=== PATIENT | female | born 1950 | race Caucasian/White ===

== ENCOUNTER → 2020-05-19 | Outpatient (CLI) | payer MEDICARE, OTHER ==
[2020-05-19 16:25] LABS: HGB 10.5 gm/dL (11.4-16.0); MCH 26.8 pg (25.0-35.0); MCHC 31.8 g/dL (31.0-37.0); MCV 84.4 fL (80.0-100.0); Mean Platelet Volume 7.1; Platelet Count 440 k/uL (150-450); RBC 3.91 m/uL (3.80-5.40); WBC 13.2 k/uL (3.8-10.6)
[2020-05-19 17:21] LABS: Appearance,Urine Clear (Clear); Bacteria,Urine Rare /hpf; Bilirubin,Urine Negative (Negative); Blood,Urine Moderate (Negative); Color,Urine Light Yellow; Glucose,Urine (UA) 4+ (Negative); Hyaline Casts,Urine 3 /lpf (0-2); Ketones,Urine Negative (Negative); Leukocyte Esterase,Urine Large (Negative); Mucus,Urine Rare /hpf; Nitrite,Urine Negative (Negative); PH, Urine 6.5 (5.0-8.0); Protein,Urine Trace (Negative); RBC,Urine >182 /hpf (0-5); Specific Gravity,Urine 1.008 (1.001-1.035); Squamous Epithelial Cell,Urine 4 /hpf (0-4); Urobilinogen,Urine <2.0 mg/dL (<2.0); WBC,Urine 84 /hpf (0-5)
[2020-05-20 00:39] LABS: % Iron Saturation 12.66 (12.00-45.00); African American GFR (CKD) 35.5 (60.0-200.0); Albumin 4.5 g/dL (3.80-4.90); Albumin/Globulin Ratio 1.96 (1.60-3.17); Anion Gap 15.5 mmol/L (4.00-12.00); BUN/Creat Ratio 12.94 Ratio (12.00-20.00); Calcium 9.6 mg/dL (8.7-10.3); Carbon Dioxide 25.5 mmol/L (21.6-31.8); Globulin 2.3 g/dL (1.6-3.3); Magnesium 1.9 mg/dL (1.5-2.4); Non-African American GFR(CKD) 30.7 (60.0-200.0); Phosphorus 3.7 mg/dL (2.4-5.1); Potassium 4.3 mmol/L (3.5-5.5); Total Bilirubin 0.3 mg/dL (0.2-1.2); Total Protein 6.8 g/dL (6.2-8.2); Uric Acid 5.7 mg/dL (2.9-7.7)
[2020-05-20 03:25] LABS: Hepatitis A Antibody IgM Non-Reactive (Non-Reactive); Hepatitis B Core IgM Non-Reactive (Non-Reactive); Hepatitis B Surface Antigen Non-Reactive (Non-Reactive); Hepatitis C IgG Antibody Non-Reactive (Non-Reactive)
[2020-05-20 06:55] LABS: Anti-DNA, DS unit <1.0 IU/mL; DNA Double-Stranded NEGATIVE (NEGATIVE)
[2020-05-20 12:04] LABS: ANA Pattern Nucleolar; ANA Pattern 2 See Footnote
[2020-05-21 07:25] LABS: C-ANCA <1:20 Titer (<1:20)
== END | disposition home or self-care (01) ==
LOC: LABWHC1 15:51
PROVIDERS: ATTEND Internal Medicine
DX: N17.9 Acute kidney failure, unspecified (principal); D64.9 Anemia, unspecified; N39.0 Urinary tract infection, site not specified; R80.9 Proteinuria, unspecified; N25.81 Secondary hyperparathyroidism of renal origin; M10.9 Gout, unspecified; R53.83 Other fatigue
CPT/HCPCS: 36415; 80053; 80074; 81001; 82043; 82306; 82570; 82728; 83516; 83540; 83550; 83735; 83970; 84100; 84550; 85027; 86038; 86039; 86160; 86162; 86225; 86255; 86334

== ENCOUNTER → 2020-05-19 | Outpatient (CLI) | payer MEDICARE, OTHER ==
--- NOTE | 2020-05-19 17:01 | CT ---
EXAMINATION TYPE: CT abdomen pelvis wo con DATE OF EXAM: 05/19/2020 COMPARISON: None HISTORY: hematuria CT DLP: 680 mGycm Examination of the solid and hollow viscera is limited given the lack of contrast. FINDINGS: LUNG BASES: No evidence for nodule. No evidence for infiltrate. LIVER/GB: The gallbladder is unremarkable. No space-occupying hepatic lesion. PANCREAS: No pancreatic mass identified. No inflammatory process seen. SPLEEN: No evidence for splenomegaly. No intrasplenic lesions seen. ADRENALS: No adrenal nodules identified. No evidence for thickening. KIDNEYS: There is edema of the right kidney with hydronephrosis noted extending to the level of the p elvic inlet where the right ureter appears to normalize. No obstructing radiopaque calculus identifie d. Nonobstructing 3 mm calculus mid pole left kidney. No left renal mass identified. Urinary bladder is unremarkable. BOWEL: Appendix has a normal appearance. No evidence of bowel obstruction. No inflammatory process. Lymph nodes: No evidence for adenopathy greater than 1 cm. Abdominal aorta: Atheromatous changes seen. No evidence for aneurysm. Genital organs: No significant abnormality. Other: No significant abnormality. IMPRESSION: 1. There is edema of the right kidney with hydronephrosis noted extending to the level of the pelvic inlet where the right ureter appears to normalize. No obstructing radiopaque calculus identified. Po ssibilities include obstructing nonradiopaque calculus, recently passed calculus as well as ureteral lesion. Underlying infection is not excluded.
== END | disposition home or self-care (01) ==
LOC: RADCTMAIN 15:19
PROVIDERS: ATTEND Urology
DX: N13.30 Unspecified hydronephrosis (principal); Z88.6 Allergy status to analgesic agent; Z88.8 Allergy status to other drugs, medicaments and biological substances
CPT/HCPCS: 36415; 74176; 80053; 80074; 81001; 82043; 82306; 82565; 82570; 82728; 83516; 83540; 83550; 83735; 83970; 84100; 84520; 84550; 85027; 86038; 86039; 86160; 86162; 86225; 86255; 86334

== ENCOUNTER → 2020-06-02 | Outpatient (CLI) | payer MEDICARE, OTHER ==
--- NOTE | 2020-06-02 22:22 | CT ---
EXAMINATION TYPE: CT abdomen pelvis wo con DATE OF EXAM: 06/02/2020 HISTORY: Hematuria, pain CT DLP: 310.10 mGycm. Automated Exposure Control for Dose Reduction was Utilized. TECHNIQUE: CT scan of the abdomen and pelvis is performed without oral or IV contrast. COMPARISON: CT abdomen and pelvis May 19, 2020. FINDINGS: Within the limitations of a non-contrast study, the following observations are made. LUNG BASES: Mild emphysematous changes visualized lung bases. LIVER/GB: No significant abnormality is appreciated. PANCREAS: No significant abnormality is seen. SPLEEN: No significant abnormality is seen. ADRENALS: No significant abnormality is seen. KIDNEYS: Central 3 mm calcification left kidney favored vascular in etiology coronal image 53 stable from prior. Persistent asymmetric slight right renal enlargement with moderate to severe hydronephros is and moderate proximal to mid hydroureter. There is transition to nondilated distal ureter in the u pper to mid pelvis near axial image 54 without obstructing calculus clearly seen. Some adjacent iliac artery calcification is redemonstrated. No intraluminal calculus in bladder. BOWEL: Slightly suboptimal evaluation of bowel without enteric contrast. No suspicious small or large bowel dilatation. GENITAL ORGANS: Anteverted uterus. LYMPH NODES: No new greater than 1cm abdominal or pelvic lymph nodes are appreciated. Right retroperi toneal subcentimeter nodule or lymph node next image 40 redemonstrated perhaps slightly more prominen t from prior. Scattered prominent but subcentimeter retroperitoneal and mesenteric lymph nodes are se en. OSSEOUS STRUCTURES: Moderate to severe disc space narrowing lumbosacral junction with vacuum disc phe nomena. Some facet arthropathy in the lower lumbar spine. OTHER: Fairly severe atherosclerotic change of aorta extends into branch vessels. IMPRESSION: No significant change from prior study. Persistent moderate to severe asymmetric right-si ded hydronephrosis with some central periureteral edema and mild enlargement right kidney. No obstruc ting calculus clearly seen. Consider further investigation with catheter urogram to exclude obstructi ng uroepithelial lesion or neoplasm.
== END | disposition home or self-care (01) ==
LOC: RADCTMAIN 17:03
PROVIDERS: ATTEND Urology
DX: N13.30 Unspecified hydronephrosis (principal); N28.81 Hypertrophy of kidney; Z88.6 Allergy status to analgesic agent; Z88.8 Allergy status to other drugs, medicaments and biological substances
CPT/HCPCS: 74176

== ENCOUNTER → 2020-07-02 | Outpatient (CLI) | payer MEDICARE, OTHER ==
--- NOTE | 2020-07-02 15:52 | CT ---
EXAMINATION TYPE: CT chest wo con DATE OF EXAM: 07/02/2020 COMPARISON: NONE HISTORY: Kidney ca. Pt scheduled for sx 07/22. Rule out metastatic disease. CT DLP: 279 mGycm. Automated Exposure Control for Dose Reduction was Utilized. TECHNIQUE: CT scan of the thorax is performed without IV contrast. FINDINGS: LUNGS: Moderate to advanced underlying emphysematous change. Nonspecific 5.5 x 5.0 right lower lobe n odule axial image 33 corresponding to sagittal image 21. Focal moderate right apical scarring there a re axial image 9. Focal right upper lung scarring coronal image 37 with 6 mm nodule or nodular compon ent axial image 18. No left-sided nodules. No pleural effusion or pneumothorax. MEDIASTINUM: Lack of IV contrast is noted to limit evaluation for mediastinal and especially hilar ad enopathy. There are no definitive greater than 1 cm hilar or mediastinal lymph nodes. Prominent but subcentimeter AP window lymph nodes are noted. No cardiomegaly or significant pericardial effusion is seen. Moderate to severe three-vessel coronary artery calcification OTHER: Partial visualization of right double-J ureter stent. Suspect abnormal right renal adenopathy image 57, in retrospect it was likely present on recent CT. It measures 1.7 x 1.6 cm currently. IMPRESSION: Moderate to advanced emphysematous change. 2 nonspecific right-sided nodules up to 6 mm i n size. Note is made of suspected right retroperitoneal adenopathy.
== END | disposition home or self-care (01) ==
LOC: RADCTMAIN 15:04
PROVIDERS: ATTEND Urology
DX: J43.9 Emphysema, unspecified (principal); R91.8 Other nonspecific abnormal finding of lung field; Z88.6 Allergy status to analgesic agent; Z88.0 Allergy status to penicillin; Z88.8 Allergy status to other drugs, medicaments and biological substances; C64.1 Malignant neoplasm of right kidney, except renal pelvis
CPT/HCPCS: 71250

== ENCOUNTER → 2020-08-20 | Outpatient (CLI) | payer MEDICARE, OTHER | END | disposition home or self-care (01) | LOC: RADPETMAIN 11:59 | PROVIDERS: ATTEND Internal Medicine Hematology & Oncology | DX: Z53.9 Procedure and treatment not carried out, unspecified reason (principal) ==

== ENCOUNTER → 2020-08-27 | Outpatient (CLI) | payer MEDICARE, OTHER ==
--- NOTE | 2020-08-30 06:32 | PE ---
EXAMINATION TYPE: PET CT fusion skull to thigh DATE OF EXAM: 08/27/2020 COMPARISON: CT chest July 02, 2020. 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 History of unresolving bladder infections. TECHNIQUE: Following the intravenous administration of 11.42 mCi of F-18 FDG, whole body images are performed from the skull base to the midthigh. Images are reviewed on the computer in the coronal, a xial, and sagittal planes. Reconstructed rotating images are created on independent workstation and reviewed on the computer. A localization and attenuation correction CT is performed in conjunction with the PET scan. SCAN: Initial Scan FINDINGS: SKULL BASE AND NECK: No suspicious hypermetabolic uptake. CHEST, MEDIASTINUM, AND HILAR REGION: No suspicious hypermetabolic uptake. ABDOMEN AND PELVIS: Normal excretion is present. There is new double-J right ureter stent. There are abnormal retroperitoneal lymph nodes with hypermetabolic aortocaval lymph nodes along the d istal aorta, for reference axial image 165 fused PET shows 8 x 8 mm hypermetabolic lymph node, max MATIAS V is 5.92. Additional hypermetabolic subcentimeter lymph nodes are present. There is a hypermetabolic subcentimeter posterior right retroperitoneal soft tissue 7 mm nodule image 176, max SUV is 2.89. Th ere is abnormal hypermetabolic uptake corresponding to abnormal soft tissue likely right common iliac chain vessels prevertebral region on the right axial image 184, max SUV is 9.48. Fairly prominent diffuse bowel uptake is nonspecific. OSSEOUS STRUCTURES: No suspicious hypermetabolic uptake. OTHER CT: Background Advanced underlying emphysematous change with few small scattered right-sided no dules, largest measures 8 x 4 mm axial image 83 right upper to midlung is ametabolic. Mild to moderat e three-vessel coronary artery calcification. Anteverted uterus. 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
== END | disposition home or self-care (01) ==
LOC: RADPETMAIN 11:33
PROVIDERS: ATTEND Internal Medicine Hematology & Oncology
DX: R93.89 Abnormal findings on diagnostic imaging of other specified body structures (principal); C66.1 Malignant neoplasm of right ureter
CPT/HCPCS: 78815; A9552

== ENCOUNTER → 2020-11-19 | Outpatient (CLI) | payer MEDICARE, OTHER ==
--- NOTE | 2020-11-21 10:07 | PE ---
EXAMINATION TYPE: PET CT fusion skull to thigh DATE OF EXAM: 11/19/2020 COMPARISON: Prior PET/CT August 27, 2020 and older studies. HISTORY: Right sided uroepithelial ureter cancer progress study . Completed chemotherapy November 12 . TECHNIQUE: Following the intravenous administration of 13.26 mCi of F-18 FDG, whole body images are performed from the skull base to the midthigh. Images are reviewed on the computer in the coronal, a xial, and sagittal planes. Reconstructed rotating images are created on independent workstation and reviewed on the computer. A localization and attenuation correction CT is performed in conjunction with the PET scan. Blood glucose level equals 116. SCAN: Subsequent Scan FINDINGS: SKULL BASE AND NECK: No suspicious hypermetabolic uptake. CHEST, MEDIASTINUM, AND HILAR REGION: Background moderate to advanced underlying emphysematous change is redemonstrated. Stable 6-7 mm ametabolic right upper lung nodule axial image 76. Stable smaller 4 to 5 mm a metabolic right lower lobe nodule axial image 97. No new areas of suspicious hypermetaboli c uptake. ABDOMEN AND PELVIS: Normal excretion is present. There is persistent double-J right ureter stent. Persistent enlarged posterior caval lymph node at level of the draining renal veins axial image 138 m easures 2.0 x 1.1 cm current study decreased in size from 2.6 x 2.0 cm prior study with interval reso lution of abnormal hypermetabolic uptake. Interval resolution of hypermetabolic subcentimeter distal abdominal aortic retroperitoneal lymph nod es on current study. Interval resolution of abnormal hypermetabolic tissue extending into the right c ommon iliac lymph nodes. Subcentimeter posterior right lower abdominal and pelvic soft tissue nodules show decrease in size an d are ametabolic on current study. Fairly prominent diffuse bowel uptake is less prominent . No new areas of abnormal hypermetabolic upt dawn. OSSEOUS STRUCTURES: No suspicious new hypermetabolic uptake. OTHER CT: Nasal septum deviated to right of midline. Mild to moderate three-vessel coronary artery ca lcification. Anteverted uterus. [id number] calcification of the aorta extends into iliac branch vessels. IMPRESSION: Complete positive treatment response. No residual or new areas of abnormal hypermetabolic uptake. Largest lymph node right retroperitoneum at level of renal veins remains only visualized lym ph node greater than 1.0 cm in size.
== END | disposition home or self-care (01) ==
LOC: RADPETMAIN 10:32
PROVIDERS: ATTEND Internal Medicine Hematology & Oncology
DX: C66.1 Malignant neoplasm of right ureter (principal)
CPT/HCPCS: 78815; A9552

== ENCOUNTER → 2020-12-28 | Outpatient (CLI) | payer MEDICARE, OTHER ==
--- NOTE | 2020-12-28 13:56 | XR ---
EXAMINATION TYPE: XR chest 2V DATE OF EXAM: 12/28/2020 COMPARISON: None INDICATION: Treatment for adrenal and kidney cancer presurgical clearance TECHNIQUE: Frontal and lateral views of the chest are obtained. FINDINGS: The heart size is normal. The pulmonary vasculature is normal. The lungs are clear. There is some hyperinflation present. Consider some emphysematous change. IMPRESSION: 1. No acute pulmonary process. 2. No suspicious changes to suggest metastatic disease by chest x-ray. 3. Consider emphysema
== END | disposition home or self-care (01) ==
LOC: RADXRMAIN 12:54
PROVIDERS: ATTEND Nurse Practitioner Family
DX: Z01.818 Encounter for other preprocedural examination (principal); C64.9 Malignant neoplasm of unspecified kidney, except renal pelvis
CPT/HCPCS: 71046

== ENCOUNTER → 2020-12-28 | Outpatient (CLI) | payer MEDICARE, OTHER ==
[2020-12-28 14:21] LABS: Basophils % (A) 1 %; Eosinophils # (A) 0.1 k/uL (0-0.7); Eosinophils % (A) 2 %; HCT 29.6 % (34.0-46.0); HGB 10.3 gm/dL (11.4-16.0); Lymphocytes # (A) 1.6 k/uL (1.0-4.8); Lymphocytes % (A) 25 %; MCH 32.4 pg (25.0-35.0); MCV 92.7 fL (80.0-100.0); Mean Platelet Volume 6.6; Monocytes # (A) 0.4 k/uL (0-1.0); Monocytes % (A) 7 %; Neutrophils # (A) 4.1 k/uL (1.3-7.7); Neutrophils % (A) 64 %; Platelet Count 247 k/uL (150-450); RBC 3.19 m/uL (3.80-5.40); RDW 15.3 % (11.5-15.5); WBC 6.4 k/uL (3.8-10.6)
[2020-12-28 14:37] LABS: Calcium 8.9 mg/dL (8.4-10.2); Potassium 3.9 mmol/L (3.5-5.1)
[2020-12-28 14:38] LABS: Appearance,Urine Cloudy (Clear); Bilirubin,Urine Negative (Negative); Blood,Urine Large (Negative); Color,Urine Light Yellow; Glucose,Urine (UA) Negative (Negative); Ketones,Urine Negative (Negative); Leukocyte Esterase,Urine Large (Negative); Mucus,Urine Rare /hpf; Nitrite,Urine Negative (Negative); PH, Urine 5.5 (5.0-8.0); Protein,Urine 1+ (Negative); RBC,Urine >182 /hpf (0-5); Specific Gravity,Urine 1.011 (1.001-1.035); Squamous Epithelial Cell,Urine <1 /hpf (0-4); Urobilinogen,Urine <2.0 mg/dL (<2.0); WBC,Urine 86 /hpf (0-5)
== END | disposition home or self-care (01) ==
LOC: LABPAT 13:15
PROVIDERS: ATTEND Urology
DX: Z01.818 Encounter for other preprocedural examination (principal); C64.1 Malignant neoplasm of right kidney, except renal pelvis; E11.9 Type 2 diabetes mellitus without complications; R31.29 Other microscopic hematuria
CPT/HCPCS: 36415; 80048; 81001; 85025; 87086

== ENCOUNTER 2021-01-06 09:00 | Inpatient (IN) | payer MEDICARE, OTHER ==
[2020-12-31 16:14] VITALS: BMI 25.0
--- NOTE | 2021-01-05 21:57 | P.HPIHPCON ---
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 Initial post operative image on showed evidence of lymphadenathy along the reteroperitoneum. She underwent PET scan which showed positive nodes along the reteroperitoneum and right common Iliac nodes. She underwent neoadjuvant chemotherapy and obtained a complete response to her jean disease. I discussed with her the option of doing a robotic nephroureteroctomy. Discussed with her risk of bleeding, infection, injury to nearby organ including but no limited blood vessels, bowel, liver. Discussed given her neoadjuvant chemotherapy her surgery would be more challenging, and is associated with increased risk of complication. Discussed with her risk of hear attacks, blood clots, stroke and even . Discussed with her risk of cancer recurrence even with surgery, Discussed with her potential of CKD and progression to dialysis. She understood all risks and agreed to proceed with robotic assisted nephroureterectomy and possible RPLND. Consent for Procedure: I have explained the operation/procedure to the patient, including the risks, benefits, side effects, alternative therapies (including not receiving the proposed treatment or service), the likelihood of the patient achieving his/her goals, and potential recuperation problems for the procedure/sedation/analgesia, as well as any blood products, if indicated. I also explained to the patient the risks, benefits and side effects of the alternatives, as well as the risks related to not receiving the proposed procedure, care, treatment, or services. 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-finished 1 month ago, had pneumonia 2019 & had heart failure & was in hospital for almost a month, went to rehab History of Any Multi-Drug Resistant Organisms: None Reported Past Surgical History: Section Additional Past Surgical History / Comment(s): insertion stent in right ureter Past Anesthesia/Blood Transfusion Reactions: No Reported Reaction Additional Past Anesthesia/Blood Transfusion Reaction / Comment(s): no problem w/blood transfusion Smoking Status: Former smoker - Past Family History Father Family Medical History: Cancer Medications and Allergies Home Medications Medication Instructions Recorded Confirmed Type Albuterol Nebulized [Ventolin 2.5 mg INHALATION BID 04/09/21 04/09/21 History Nebulized] Budesonide [Pulmicort] 0.5 mg INHALATION BID 12/31/20 12/31/20 History Calcium Carbonate/Vitamin D3 1 each PO DAILY 12/31/20 12/31/20 History [Calcium 600 mg-D3 10 Mcg (400 Iu)] Ergocalciferol [Vitamin D2 (1250 1,250 mcg PO Q14D 12/31/20 12/31/20 History Mcg = 47565 Iu)] Famotidine [Pepcid] 20 mg PO BID 12/31/20 12/31/20 History Furosemide [Lasix] 20 mg PO BID 12/31/20 12/31/20 History Insulin Aspart [NovoLOG Flexpen] See Protocol SQ AC-TID 12/31/20 12/31/20 History Insulin Glargine [Lantus] 20 unit SQ HS 12/31/20 12/31/20 History Magnesium Oxide 400 mg PO DAILY 12/31/20 12/31/20 History Metoprolol Tartrate [Lopressor] 25 mg PO BID 12/31/20 12/31/20 History Montelukast [Singulair] 10 mg PO HS 12/31/20 12/31/20 History Ondansetron [Zofran] 4 mg PO Q8HR PRN 12/31/20 12/31/20 History Pravastatin Sodium [Pravachol] 40 mg PO HS 12/31/20 12/31/20 History metFORMIN HCL [Glucophage] 500 mg PO DAILY 12/31/20 12/31/20 History Allergies Allergy/AdvReac Type Severity Reaction Status Date / Time amoxicillin [From Augmentin] Allergy Abdominal Verified 12/31/20 13:04 Pain clavulanic acid Allergy Abdominal Verified 12/31/20 13:04 [From Augmentin] Pain aspirin AdvReac Unknown Verified 12/31/20 13:04 codeine AdvReac Confusion Verified 12/31/20 13:04 prochlorperazine AdvReac Unknown Verified 12/31/20 13:05 [From Compazine] Surgical - Exam - General well developed, well nourished, no distress, no pain - Eyes PERRL, normal ocular movement - ENT normal nares, normal mucosa - Respiratory normal expansion, normal respiratory effort - Psychiatric oriented to time, oriented to person, oriented to place Assessment and Plan Assessment: 70 yo male with hx of right sided TCC -OR for robotic NephU and possible RPLND
[~2021-01-06 09:00] MED LIST: CLINDAMYCIN 600 MG in DEXTROSE 5% IN WATER 50 ML IVPB PRN; DEXAMETHASONE SOD PHOSPHATE 4 MG/ML 1 ML VIAL IV ONE; GENTAMICIN 80 MG in SODIUM CHLORIDE 0.9% 100 ML IVPB PRN; HEPARIN SODIUM,PORCINE/PF 5,000 UNIT/0.5 ML SYRINGE SQ PRN; HYDROmorphone 0.5 MG/0.5 ML SYRINGE IVP PRN; LIDOCAINE 1% (10MG/ML) FOR IV START INTRADERMA PRN; METOCLOPRAMIDE 5 MG/ML 2 ML VIAL IVP PRN; ONDANSETRON 4 MG/2 ML VIAL IVP ONE; ONDANSETRON 4 MG/2 ML VIAL IVP PRN
[2021-01-06] MEDS: LACTATED RINGERS 1,000 ML IV SCH ×2 (09:57→09:58)
[2021-01-06 10:00] LABS: Glucose,Whole Blood 117 mg/dL (75-99)
[2021-01-06] MEDS ORDERED: fentaNYL (PF) 50 MCG/ML 2 ML AMP IV ONE (10:35)
[2021-01-06] MEDS ORDERED: MIDAZOLAM 2 MG/2 ML VIAL IV ONE (10:35)
[2021-01-06] MEDS ORDERED: ROCURONIUM 10 MG/ML (5 ML VIAL) IV ONE (11:05)
[2021-01-06] MEDS ORDERED: ePHEDrine SULFATE/0.9% NACL/PF 50 MG/5 ML SYRINGE IV ONE ×2 (11:05)
[2021-01-06] MEDS ORDERED: LIDOCAINE 1% INJ 10MG/ML (20 ML MDV) ONE (11:05)
[2021-01-06] MEDS ORDERED: MIDAZOLAM 2 MG/2 ML VIAL ONE (11:05)
[2021-01-06] MEDS ORDERED: ROPIVACAINE 5 MG/ML 30 ML VIAL ONE (11:05)
[2021-01-06] MEDS ORDERED: GLYCOPYRROLATE 0.2 MG/ML 2 ML VIAL ONE (11:05)
[2021-01-06] MEDS ORDERED: HYDROmorphone (PF) 1 MG/ML ONE (11:05)
[2021-01-06] MEDS ORDERED: ALBUTEROL INHALER 60 PUFF/8 GM INHALER (MHU) INHALATION ONE (11:05)
[2021-01-06] MEDS ORDERED: fentaNYL (PF) 50 MCG/ML 2 ML AMP ONE (11:05)
[2021-01-06] MEDS ORDERED: SODIUM CHLORIDE 0.9% (PF) 10 ML VIAL ONE (11:05)
[2021-01-06] MEDS ORDERED: PROPOFOL 10 MG/ML 20 ML VIAL IV ONE (11:05)
[2021-01-06] MEDS ORDERED: NEOSTIGMINE 1 MG/ML 10 ML VIAL ONE (11:05)
--- NOTE | 2021-01-06 11:08 | P.ANPRN ---
Procedure Note - Anesthesia - Nerve Block Performed Bilateral Erector Spinae Single Time Out Performed: Yes (1034) Date of Procedure: 01/06/21 Procedure Start Time: 10:35 Procedure Stop Time: 10:41 Location of Patient: PreOp Indication: Acute Post-Operative Pain, Requested by Surgeon Specifically requested for management of pain by : Pascual Lee Sedation Type: Sedate with meaningful contact maintained Preparation: Sterile Prep Position: Supine Catheter: None Needle Types: Pajunk Needle Gauge: 21 Ultrasound used to visualize needle placement: Yes Ultrasound used to observe medication spread: Yes Injectate: 0.5% Ropivacaine (see comment for volume) ((Ropi 0.5% 15cc NaCl 15cc) each side) Blood Aspirated: No Pain Paresthesia on Injection Noted: No Resistance on Injection: Normal Image Stored and Saved: Yes Events: Uneventful and Well Tolerated
[2021-01-06] MEDS ORDERED: BUPIVACAINE (PF) 0.5% 30 ML VIAL SQ ONE (11:12)
[2021-01-06] MEDS ORDERED: LACTATED RINGERS 1,000 ML IV ONE (13:26)
--- NOTE | 2021-01-06 13:28 | P.OP ---
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 Initial post operative image on showed evidence of lymphadenathy along the reteroperitoneum. She underwent PET scan which showed positive nodes along the reteroperitoneum and right common Iliac nodes. She underwent neoadjuvant chemotherapy and obtained a complete response to her jean disease. I discussed with her the option of doing a robotic nephroureteroctomy. Discussed with her risk of bleeding, infection, injury to nearby organ including but no limited blood vessels, bowel, liver. Discussed given her neoadjuvant chemotherapy her surgery would be more challenging, and is associated with increased risk of complication. Discussed with her risk of hear attacks, blood clots, stroke and even . Discussed with her risk of cancer recurrence even with surgery, Discussed with her potential of CKD and progression to dialysis. She understood all risks and agreed to proceed with robotic assisted nephroureterectomy and possible RPLND. Operative Findings: Significant desmoplastic reaction around the kidney and the ureter Description of Procedure: The patient was taken to the operating room . General anesthesia was induced. She was prepped and draped in sterile fashion, and was placed in modified flank position . All pressure points were padded. The abdominal insufflation was achieved with the Veress needle. A 8 mm camera port was placed. Robotic trocars and dairy and food laboratory assistant ports were placed under direct vision. a 5 mm liver retractor was placed. . The robot was docked into place. The colon was mobilized medially by incising along the white line of Toldt. Next the duodenum was kocherized. Of note there was significant edematous and desmoplastic reaction around the bowel in the kidney. At this time the vena cava was exposed. Next the ureter was retracted anteriorly off the psoas muscle, this was challenging due to the significant desmoplastic reaction around the ureter. Dissection proceeded cranially towards the renal hilum. A The upper pole attachments were dissected. Care was taken to safely mobilize the kidney free of all visceral structures.The renal vessels were dissected. At this point the renal vessels were exposed. Next the renal hilum was ligated using the vascular stapler. at this time it was noticed that ureter has partially tore in the proximal ureter. At this time clip was placed at the proximal ureter edge and the sent was removed. The adrenal gland was mobilized. Lateral and remaining kidney attachments were released. There was significant adhesion along the distal ureter. Thus given this finding and the desmoplastic reaction around the ureter, a bladder cuff could not be obtained. Thus the ureter was clipped right before it enters the bladder and ligated The kidney and ureter was placed in an Endo Catch bag. The robot was then de-docked and the specimen was then removed by extending the dairy and food laboratory assistant port. Fascia was closed with one layer using #1 Stratafix. Skin was closed with subcuticular sutures and dermabond. The patient was awoken from general anesthesia in stable condition. Please refer to the final pathology report for final diagnosis
[2021-01-06] MEDS ORDERED: ONDANSETRON 4 MG TAB PO PRN (13:34)
[2021-01-06] MEDS ORDERED: HYDROmorphone 1 MG/ML 1 ML SYRINGE IVP PRN (13:38)
[2021-01-06] MEDS ORDERED: methocarbamoL 750 MG TAB PO PRN (13:40)
[2021-01-06 15:55] LABS: Glucose,Whole Blood 192 mg/dL (75-99)
[2021-01-06] MEDS: SODIUM CHLORIDE 0.9% 1,000 ML IV SCH (17:43)
[2021-01-06] MEDS: HEPARIN SODIUM,PORCINE/PF 5,000 UNIT/0.5 ML SYRINGE SQ SCH ×2 (17:43→23:27)
[2021-01-06] MEDS: ALBUTEROL NEBULIZED 2.5 MG/3 ML INHALATION SCH (19:29)
[2021-01-06] MEDS: BUDESONIDE 0.5 MG/2 ML NEBU INHALATION SCH (19:29)
[2021-01-06] MEDS: INSULIN DETEMIR (LEVEMIR) 100 UNIT/ML SYR SQ SCH (20:09)
[2021-01-06] MEDS: MONTELUKAST 10 MG TAB PO SCH (20:10)
[2021-01-06] MEDS: METOPROLOL TARTRATE 25 MG TAB PO SCH (20:10)
[2021-01-06] MEDS: PRAVASTATIN SODIUM 40 MG TAB PO SCH (20:10)
[2021-01-06 20:18] LABS: Glucose,Whole Blood 159 mg/dL (75-99)
[2021-01-07] MEDS: ACETAMINOPHEN TAB 325 MG TAB PO PRN ×4 (01:48→20:56)
[2021-01-07] MEDS: SODIUM CHLORIDE 0.9% 1,000 ML IV SCH (05:04)
[2021-01-07 05:56] LABS: Basophils % (A) 0 %; Eosinophils % (A) 0 %; HCT 25.6 % (34.0-46.0); Lymphocytes # (A) 1.1 k/uL (1.0-4.8); Lymphocytes % (A) 12 %; MCH 31.1 pg (25.0-35.0); MCHC 32.7 g/dL (31.0-37.0); Mean Platelet Volume 6.7; Monocytes # (A) 0.6 k/uL (0-1.0); Monocytes % (A) 7 %; Neutrophils % (A) 80 %; Platelet Count 234 k/uL (150-450); RDW 15.3 % (11.5-15.5); WBC 8.8 k/uL (3.8-10.6)
[2021-01-07 06:18] LABS: HGB 8.4 gm/dL (11.4-16.0)
[2021-01-07 07:21] LABS: Glucose,Whole Blood 109 mg/dL (75-99)
[2021-01-07] MEDS: HEPARIN SODIUM,PORCINE/PF 5,000 UNIT/0.5 ML SYRINGE SQ SCH ×2 (07:35→17:36)
[2021-01-07] MEDS: SENNOSIDES 8.6 MG TAB PO SCH (07:36)
[2021-01-07] MEDS: metFORMIN 500 MG TAB PO SCH (07:37)
[2021-01-07] MEDS: METOPROLOL TARTRATE 25 MG TAB PO SCH ×2 (07:37→20:53)
[2021-01-07] MEDS: BUDESONIDE 0.5 MG/2 ML NEBU INHALATION SCH ×2 (08:30→20:12)
[2021-01-07] MEDS: ALBUTEROL NEBULIZED 2.5 MG/3 ML INHALATION SCH ×2 (08:30→20:12)
[2021-01-07] MEDS ORDERED: FAMOTIDINE 20 MG TAB PO SCH (09:00)
[2021-01-07] MEDS: FAMOTIDINE 20 MG TAB PO SCH ×3 (09:02→20:52)
--- NOTE | 2021-01-07 09:12 | P.PN ---
Subjective Progress Note Date: 01/07/21 POD #1 S/P robotic right NephU No acute overnight event, pain is controlled, tolerating a diet, Objective - Vital Signs Vital signs: Vital Signs Temp 97.5 F L 01/07/21 07:41 Pulse 82 01/07/21 08:43 Resp 16 01/07/21 08:43 BP 114/61 01/07/21 07:41 Pulse Ox 100 01/07/21 08:30 Intake & Output 01/06/21 01/07/21 01/07/21 18:59 06:59 18:59 Intake Total 2376 1260 120 Output Total 700 600 Balance 1676 660 120 Weight 58.5 kg Intake: IV 2106 Intake, IV Titration 150 900 Amount Sodium Chloride 0.9% 1, 150 900 000 ml @ 75 mls/hr IV . [id number] [facility] Rx#:[id number] Oral 120 360 120 Output: Urine 650 600 Estimated Blood Loss 50 Other: Voiding Method Indwelling Catheter Indwelling Catheter - Constitutional General appearance: Present: no acute distress - Psychiatric Psychiatric: Present: A&O x's 3 - Labs CBC & Chem 7: 01/07/21 05:00 Labs: Abnormal Lab Results - Last 24 Hours (Table) 01/06/21 01/06/21 01/06/21 Range/Units 09:57 15:53 20:16 RBC (3.80-5.40) m/uL Hgb (11.4-16.0) gm/dL Hct (34.0-46.0) % POC Glucose (mg/dL) 117 H 192 H 159 H (75-99) mg/dL 01/07/21 01/07/21 Range/Units 05:00 07:20 RBC 2.70 L (3.80-5.40) m/uL Hgb 8.4 L D (11.4-16.0) gm/dL Hct 25.6 L (34.0-46.0) % POC Glucose (mg/dL) 109 H (75-99) mg/dL Assessment and Plan Assessment: S/P right robotic NephU, no bladder cuff was obtained due to adhesions -ambulate -Pain control -D/C mcnair -F/U on Nephrology recs -Potential discharge home tomorrow
[2021-01-07 10:00] LABS: African American GFR (CKD) 48.8 (60.0-200.0); Anion Gap 9.8 mmol/L (4.00-12.00); Calcium 8.3 mg/dL (8.7-10.3); Carbon Dioxide 26.2 mmol/L (21.6-31.8); Non-African American GFR(CKD) 42.1 (60.0-200.0); Potassium 4.8 mmol/L (3.5-5.5)
--- NOTE | 2021-01-07 11:36 | P.NPCON ---
History of Present Illness - Reason for Consult chronic renal failure - History of Present Illness Reason for consultation: Chronic kidney disease History of present illness: I sent patient is a 70-year-old female seated in renal consultation for chronic kidney disease. Patient has chronic kidney disease stage III at baseline creatinine in the range of 1.1-1.2. Patient has history of renal cancer and underwent a robotic-assisted laparoscopic nephroureterectomy on January 06. She currently has a Torre catheter. Good urine output. Renal function stable. Creatinine 1.3 today. No chest pain or shor tness of breath. Oral intake is good. IV fluids were stopped this morning. She does have a long-standing history of diabetes mellitus. She was taking diuretics at home which are currently held. No edema. Denies use of nonsteroidals. No family history of renal disease. Last chemotherapy was about a month ago. Vital signs are stable. General: The patient appeared well nourished and normally developed. HEENT: Head exam is unremarkable. LUNGS: Breath sounds decreased. HEART: Rate and Rhythm are regular. ABDOMEN: Soft, mild tenderness at surgical site. EXTREMITITES: No edema. 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-finished 1 month ago, had pneumonia 2018 & had heart failure & was in hospital for almost a month, went to rehab History of Any Multi-Drug Resistant Organisms: None Reported Past Surgical History: Section Additional Past Surgical History / Comment(s): insertion stent in right ureter Past Anesthesia/Blood Transfusion Reactions: No Reported Reaction Additional Past Anesthesia/Blood Transfusion Reaction / Comment(s): no problem w/blood transfusion Smoking Status: Former smoker - Past Family History Father Family Medical History: Cancer Medications and Allergies Home Medications Medication Instructions Recorded Confirmed Type Albuterol Nebulized [Ventolin 2.5 mg INHALATION BID 12/31/20 12/31/20 History Nebulized] Budesonide [Pulmicort] 0.5 mg INHALATION BID 12/31/20 12/31/20 History Calcium Carbonate/Vitamin D3 1 each PO DAILY 12/31/20 12/31/20 History [Calcium 600 mg-D3 10 Mcg (400 Iu)] Ergocalciferol [Vitamin D2 (1250 1,250 mcg PO Q14D 12/31/20 12/31/20 History Mcg = 76102 Iu)] Famotidine [Pepcid] 20 mg PO BID 12/31/20 12/31/20 History Furosemide [Lasix] 20 mg PO BID 12/31/20 12/31/20 History Insulin Aspart [NovoLOG Flexpen] See Protocol SQ AC-TID 12/31/20 12/31/20 History Insulin Glargine [Lantus] 20 unit SQ HS 12/31/20 12/31/20 History Magnesium Oxide 400 mg PO DAILY 12/31/20 12/31/20 History Metoprolol Tartrate [Lopressor] 25 mg PO BID 12/31/20 12/31/20 History Montelukast [Singulair] 10 mg PO HS 12/31/20 12/31/20 History Ondansetron [Zofran] 4 mg PO Q8HR PRN 12/31/20 12/31/20 History Pravastatin Sodium [Pravachol] 40 mg PO HS 12/31/20 12/31/20 History metFORMIN HCL [Glucophage] 500 mg PO DAILY 12/31/20 12/31/20 History traMADol HCl [Ultram] 50 mg PO Q6HR PRN 3 Days #10 tab 01/07/21 Rx Allergies Allergy/AdvReac Type Severity Reaction Status Date / Time amoxicillin [From Augmentin] Allergy Abdominal Verified 01/06/21 09:53 Pain clavulanic acid Allergy Abdominal Verified 01/06/21 09:53 [From Augmentin] Pain aspirin AdvReac Unknown Verified 01/06/21 09:53 codeine AdvReac Confusion Verified 01/06/21 09:53 prochlorperazine AdvReac Unknown Verified 01/06/21 09:53 [From Compazine] Physical Exam Vitals: Vital Signs Temp Pulse Pulse Resp BP Pulse Ox 01/07/21 08:43 82 16 01/07/21 08:30 84 16 100 01/07/21 07:41 97.5 F L 58 L 16 114/61 98 01/07/21 05:00 98.0 F 88 16 117/69 99 01/06/21 20:11 97.5 F L 94 16 145/73 100 01/06/21 20:10 16 01/06/21 19:41 88 01/06/21 19:34 88 01/06/21 16:32 97.9 F 88 16 165/78 100 01/06/21 15:35 72 16 149/71 100 01/06/21 15:00 71 16 152/73 99 01/06/21 14:25 80 16 160/80 100 01/06/21 14:10 78 16 152/67 100 01/06/21 13:55 80 16 154/76 100 01/06/21 13:40 96.8 F L 96 16 166/63 100 Intake and Output 01/06/21 01/07/21 01/07/21 22:59 06:59 14:59 Intake Total 390 1140 120 Output Total 500 600 500 Balance -110 540 -380 Intake: Intake, IV Titration 150 900 Amount Sodium Chloride 0.9% 1, 150 900 000 ml @ 75 mls/hr IV . [id number] [facility] Rx#:[id number] Oral 240 240 120 Output: Urine 500 600 500 Uretheral (Torre) 500 Other: Voiding Method Indwelling Catheter Diaper Weight 58.5 kg Results - Lab Results Most recent lab results Calcium 8.3 mg/dL (8.7-10.3) L 01/07/21 05:00 01/07/21 05:00 01/07/21 05:00 Assessment and Plan Plan: Assessment: 1. Chronic kidney disease stage IIIA with baseline creatinine near 1.1-1.2. Creatinine 1.3 today. Etiology is diabetic kidney disease as well as solitary kidney. 2. Renal cell carcinoma status post right nephroureterectomy on January 06. 3. Diabetes mellitus. 4. Anemia of chronic kidney disease. Rule out iron deficiency. 5. Hypertension with chronic kidney disease. Controlled. Plan: IV fluids stopped this morning. Torre catheter to be discontinued today. Check iron studies. Avoid nephrotoxins. Continue to monitor renal function and urine output. Thank you for the consultation. I will continue to follow patient with you during her hospital stay.
[2021-01-07 11:42] LABS: Glucose,Whole Blood 131 mg/dL (75-99)
[2021-01-07 17:04] LABS: Glucose,Whole Blood 135 mg/dL (75-99)
[2021-01-07 18:04] LABS: % Iron Saturation 16.59 (12.00-45.00)
[2021-01-07 18:50] LABS: Ferritin 550.1 ng/mL (10.0-291.0)
[2021-01-07 20:47] LABS: Glucose,Whole Blood 191 mg/dL (75-99)
[2021-01-07] MEDS: MONTELUKAST 10 MG TAB PO SCH (20:52)
[2021-01-07] MEDS: INSULIN DETEMIR (LEVEMIR) 100 UNIT/ML SYR SQ SCH (20:53)
[2021-01-07] MEDS: PRAVASTATIN SODIUM 40 MG TAB PO SCH (20:53)
[2021-01-08] MEDS: HEPARIN SODIUM,PORCINE/PF 5,000 UNIT/0.5 ML SYRINGE SQ SCH ×4 (01:17→23:33)
[2021-01-08 06:35] LABS: Basophils % (A) 0 %; Eosinophils # (A) 0.1 k/uL (0-0.7); Eosinophils % (A) 1 %; HCT 23.5 % (34.0-46.0); HGB 8.3 gm/dL (11.4-16.0); Lymphocytes % (A) 13 %; MCH 32.8 pg (25.0-35.0); MCHC 35.1 g/dL (31.0-37.0); MCV 93.4 fL (80.0-100.0); Mean Platelet Volume 7.3; Monocytes # (A) 0.6 k/uL (0-1.0); Monocytes % (A) 9 %; Neutrophils # (A) 5.6 k/uL (1.3-7.7); Neutrophils % (A) 76 %; Platelet Count 228 k/uL (150-450); RBC 2.52 m/uL (3.80-5.40); RDW 14.7 % (11.5-15.5); WBC 7.4 k/uL (3.8-10.6)
[2021-01-08 07:06] LABS: Glucose,Whole Blood 100 mg/dL (75-99)
[2021-01-08] MEDS: METOPROLOL TARTRATE 25 MG TAB PO SCH ×2 (08:09→20:59)
[2021-01-08] MEDS: SENNOSIDES 8.6 MG TAB PO SCH (08:09)
[2021-01-08] MEDS: FAMOTIDINE 20 MG TAB PO SCH (08:09)
[2021-01-08] MEDS: metFORMIN 500 MG TAB PO SCH (08:09)
[2021-01-08] MEDS: ACETAMINOPHEN TAB 325 MG TAB PO PRN ×3 (08:10→20:59)
[2021-01-08] MEDS: BUDESONIDE 0.5 MG/2 ML NEBU INHALATION SCH ×2 (08:54→20:58)
[2021-01-08] MEDS: ALBUTEROL NEBULIZED 2.5 MG/3 ML INHALATION SCH ×2 (08:54→20:57)
[2021-01-08 09:13] LABS: Anion Gap 8.3 mmol/L (4.00-12.00); BUN/Creat Ratio 18.13 Ratio (12.00-20.00); Calcium 8.5 mg/dL (8.7-10.3); Carbon Dioxide 25.7 mmol/L (21.6-31.8); Non-African American GFR(CKD) 32.8 (60.0-200.0); Potassium 4.4 mmol/L (3.5-5.5)
[2021-01-08 12:04] LABS: Glucose,Whole Blood 116 mg/dL (75-99)
--- NOTE | 2021-01-08 15:28 | P.PN ---
Subjective POD #2 S/P robotic right NephU No acute overnight event, pain is controlled, tolerating a diet, ambulating w/o difficulty. mcnair removed yesterday and able to void w/o issue Objective - Vital Signs Vital signs: Vital Signs Temp 97.6 F 01/08/21 12:00 Pulse 84 01/08/21 12:00 Resp 14 01/08/21 12:00 BP 136/71 01/08/21 12:00 Pulse Ox 99 01/08/21 12:00 Intake & Output 01/07/21 01/08/21 01/08/21 18:59 06:59 18:59 Intake Total 120 Output Total 500 Balance -380 Intake: Oral 120 Output: Urine 500 Uretheral (Mcnair) 500 Other: Voiding Method Diaper Diaper Diaper # Voids 2 2 - Constitutional General appearance: Present: no acute distress - Gastrointestinal General gastrointestinal: Present: soft. Absent: distended, tenderness - Integumentary Integumentary Comment(s): Incision: CDI - Labs CBC & Chem 7: 01/08/21 04:49 01/08/21 04:49 Labs: Abnormal Lab Results - Last 24 Hours (Table) 01/07/21 01/07/21 01/07/21 Range/Units 05:00 17:03 20:46 RBC (3.80-5.40) m/uL Hgb (11.4-16.0) gm/dL Hct (34.0-46.0) % BUN (9.0-27.0) mg/dL Creatinine (0.6-1.5) mg/dL Est GFR (CKD-EPI)AfAm (60.0-200.0) Est GFR (CKD-EPI)NonAf (60.0-200.0) POC Glucose (mg/dL) 135 H 191 H (75-99) mg/dL Calcium (8.7-10.3) mg/dL Iron 37 L (50-170) ug/dL TIBC 223 L (228-460) ug/dL Ferritin 550.1 H (10.0-291.0) ng/mL 01/08/21 01/08/21 01/08/21 Range/Units 04:49 04:49 07:04 RBC 2.52 L (3.80-5.40) m/uL Hgb 8.3 L (11.4-16.0) gm/dL Hct 23.5 L (34.0-46.0) % BUN 29.0 H (9.0-27.0) mg/dL Creatinine 1.6 H (0.6-1.5) mg/dL Est GFR (CKD-EPI)AfAm 38.0 L (60.0-200.0) Est GFR (CKD-EPI)NonAf 32.8 L (60.0-200.0) POC Glucose (mg/dL) 100 H (75-99) mg/dL Calcium 8.5 L (8.7-10.3) mg/dL Iron (50-170) ug/dL TIBC (228-460) ug/dL Ferritin (10.0-291.0) ng/mL 01/08/21 Range/Units 12:02 RBC (3.80-5.40) m/uL Hgb (11.4-16.0) gm/dL Hct (34.0-46.0) % BUN (9.0-27.0) mg/dL Creatinine (0.6-1.5) mg/dL Est GFR (CKD-EPI)AfAm (60.0-200.0) Est GFR (CKD-EPI)NonAf (60.0-200.0) POC Glucose (mg/dL) 116 H (75-99) mg/dL Calcium (8.7-10.3) mg/dL Iron (50-170) ug/dL TIBC (228-460) ug/dL Ferritin (10.0-291.0) ng/mL Assessment and Plan Assessment: S/P right robotic NephU, no bladder cuff was obtained due to adhesions -ambulate -Pain control -F/U on Nephrology recs -Plan to discharge patient to [facility] on sunday.
[2021-01-08 17:24] LABS: Glucose,Whole Blood 126 mg/dL (75-99)
--- NOTE | 2021-01-08 17:45 | PN ---
PROGRESS NOTE The patient is seen for followup for acute kidney injury on top of chronic kidney disease. The patient has stage III CKD, baseline creatinine 1.1-1.2 mg/dL. She also has underlying renal cell cancer status post robotic assisted laparoscopic nephroureterectomy on January 06. She is currently comfortable. She is complaining of some abdominal pain. She has had urine output which is not accurately measured. Surgery was performed on 01/06/2021. Serum creatinine has increased to 1.6 mg/dL today. There is no significant hypotension noted. All of the blood pressures have been 110- 114 mmHg systolic. PHYSICAL EXAMINATION: On examination today, blood pressure is 136/71, heart rate 84 per minute. Patient is afebrile. Examination of the heart S1, S2. Examination of the lungs, bilateral breath sounds are heard. Abdomen is soft, nontender. Examination of lower extremities shows no significant edema. MANAGER STYLIST exam grossly intact. LAB: Show sodium of 141, potassium 4.4, chloride 107, BUN 29, creatinine 1.6. ASSESSMENT: 1. Acute kidney injury associated with the nephrectomy. The patient is currently not on any IV fluids. I will add IV hydration and repeat labs in a.m. Continue to avoid nephrotoxic agents. Avoid hypotension. 2. Renal cell cancer status post robotic assisted nephroureterectomy, right side. 3. Hypertension with chronic kidney disease. 4. Chronic kidney disease stage 3, baseline creatinine 1.1-1.2 mg/dL secondary to diabetic kidney disease. PLAN: Add IV fluids. MMODL / IJN: [id number] /
[2021-01-08 20:58] LABS: Glucose,Whole Blood 131 mg/dL (75-99)
[2021-01-08] MEDS: PRAVASTATIN SODIUM 40 MG TAB PO SCH (20:59)
[2021-01-08] MEDS: MONTELUKAST 10 MG TAB PO SCH (20:59)
[2021-01-08] MEDS: INSULIN DETEMIR (LEVEMIR) 100 UNIT/ML SYR SQ SCH (21:00)
[2021-01-09 07:14] LABS: Glucose,Whole Blood 102 mg/dL (75-99)
[2021-01-09] MEDS: BUDESONIDE 0.5 MG/2 ML NEBU INHALATION SCH ×2 (07:35→20:25)
[2021-01-09] MEDS: ALBUTEROL NEBULIZED 2.5 MG/3 ML INHALATION SCH ×2 (07:35→20:25)
[2021-01-09] MEDS: HEPARIN SODIUM,PORCINE/PF 5,000 UNIT/0.5 ML SYRINGE SQ SCH ×3 (08:14→23:17)
[2021-01-09] MEDS: SENNOSIDES 8.6 MG TAB PO SCH (08:14)
[2021-01-09] MEDS: metFORMIN 500 MG TAB PO SCH (08:15)
[2021-01-09] MEDS: FAMOTIDINE 20 MG TAB PO SCH (08:15)
[2021-01-09] MEDS: METOPROLOL TARTRATE 25 MG TAB PO SCH ×2 (08:15→20:37)
[2021-01-09] MEDS: ACETAMINOPHEN TAB 325 MG TAB PO PRN ×3 (08:16→20:44)
[2021-01-09] MEDS: SODIUM CHLORIDE 0.9% 1,000 ML IV SCH (11:32)
[2021-01-09 12:07] LABS: Glucose,Whole Blood 87 mg/dL (75-99)
[2021-01-09 12:11] LABS: African American GFR (CKD) 32 (>60 ml/min/1.73 sqM); Anion Gap 5 mmol/L; Blood Urea Nitrogen 27 mg/dL (7-17); Calcium 9.1 mg/dL (8.4-10.2); Carbon Dioxide 30 mmol/L (22-30); Chloride 102 mmol/L (98-107); Glucose 89 mg/dL (74-99); Non-African American GFR(CKD) 28 (>60 ml/min/1.73 sqM); Potassium 4.5 mmol/L (3.5-5.1); Sodium 137 mmol/L (137-145)
--- NOTE | 2021-01-09 12:34 | PN ---
PROGRESS NOTE Patient is seen for followup for acute kidney injury. Her creatinine has increased to 1.8 today. She is status post laparoscopic right nephroureterectomy. She has good urine output. The patient states she has been eating and drinking well. Her abdominal pain has improved. PHYSICAL EXAMINATION: On examination today, blood pressure 125/67, heart rate 74 per minute, she is afebrile. Examination of the heart S1, S2. Examination of the lungs, bilateral breath sounds are heard. Abdomen is soft, nontender. Examination of lower extremities shows no significant edema. [employer]Y WALL FINISHER exam grossly intact. LABS: Show sodium 137, potassium 4.5, BUN 27, creatinine 1.85. ASSESSMENT: 1. Acute kidney injury, status post right nephrectomy. Start IV fluids. The patient is voiding well. Avoid hypotension. Avoid any nephrotoxic medications. Labs will be checked again in about 1-2 weeks. 2. Renal cell cancer, status post robotic assisted right nephroureterectomy. 3. Chronic kidney disease stage 3 previous creatinine 1.1-1.3 prior to surgery, mostly secondary to diabetic kidney disease. PLAN: Start IV hydration. Repeat labs in a.m. MMODL / IJN: [id number] /
[2021-01-09 17:25] LABS: Glucose,Whole Blood 140 mg/dL (75-99)
[2021-01-09] MEDS: PRAVASTATIN SODIUM 40 MG TAB PO SCH (20:37)
[2021-01-09] MEDS: MONTELUKAST 10 MG TAB PO SCH (20:37)
[2021-01-09 20:39] LABS: Glucose,Whole Blood 135 mg/dL (75-99)
[2021-01-09] MEDS: INSULIN DETEMIR (LEVEMIR) 100 UNIT/ML SYR SQ SCH (20:39)
[2021-01-10 05:37] VITALS: RESP 16
[2021-01-10 07:14] LABS: Glucose,Whole Blood 101 mg/dL (75-99)
[2021-01-10] MEDS: SODIUM CHLORIDE 0.9% 1,000 ML IV SCH (08:06)
[2021-01-10] MEDS: METOPROLOL TARTRATE 25 MG TAB PO SCH (08:07)
[2021-01-10] MEDS: HEPARIN SODIUM,PORCINE/PF 5,000 UNIT/0.5 ML SYRINGE SQ SCH (08:07)
[2021-01-10] MEDS: FAMOTIDINE 20 MG TAB PO SCH (08:07)
[2021-01-10] MEDS: metFORMIN 500 MG TAB PO SCH (08:07)
[2021-01-10] MEDS: SENNOSIDES 8.6 MG TAB PO SCH (08:07)
[2021-01-10] MEDS: ACETAMINOPHEN TAB 325 MG TAB PO PRN ×2 (08:13→14:46)
[2021-01-10] MEDS: ALBUTEROL NEBULIZED 2.5 MG/3 ML INHALATION SCH (09:35)
[2021-01-10] MEDS: BUDESONIDE 0.5 MG/2 ML NEBU INHALATION SCH (09:35)
[2021-01-10 11:43] LABS: Glucose,Whole Blood 109 mg/dL (75-99)
--- NOTE | 2021-01-10 11:51 | CDI ---
Documentation Clarification Form Date: 01/10/2021 10:40:01 AM From: Dorota Betancourt Phone: Admit Date: 01/06/2021 09:00:00 AM Patient Name: Alma Hannon Visit Number: [id number] Discharge Date: ATTENTION: The Clinical Documentation Specialists (CDI) and [facility] Coding Staff appreciate your assistance in clarifying documentation. Please respond to the clarification below the line at the bottom and electronically sign. The CDI & [facility] Coding staff will review the response and follow-up if needed. Please note: Queries are made part of the Legal Health Record. If you have any questions, please contact the author of this message via ITS. Dr. Azucena Karimi Acute kidney injury associated with nephrectomy is documented in the progress note starting 01/08/21. The patient had a nephrectomy on 01/06. Additional clarification is requested regarding the relationship, if any, that exists between the diagnosis and the procedure. Patients Admitting Diagnosis: Right transitional cell carcinoma Post-Operative Diagnosis: Same Procedure performed: Robotic assisted Laparoscopic Nephroureterectomy History/Risk Factors: Chronic kidney disease stage III, Right transitional cell carcinoma, Diabetes Mellitus, Hypertension Clinical Indicators: 70-year-old female present for elective nephroureterectomy. The progress note on 01/08 has acute kidney injury associated with the nephrectomy. She has chronic kidney disease stage 3, baseline creatinine 1.1-1.3mg/dl secondary to diabetic kidney disease. 01/08 BUN 29.0 creatinine 1.6 01/09 BUN 27, Creatinine 1.85 Treatment: Basic metabolic panel 01/10 .9NS @80 MLS/HR IV Q 12HRS Avoid nephrotoxic agents, Avoid hypotension. Monitor I/O What relationship, if any, exists between the diagnosis of acute kidney injury and the procedure? [ ] Acute Kidney Injury is a complication of surgical procedure [ *] Acute Kidney injury is an expected outcome of the surgical procedure [ ] Acute Kidney injury is related to patients co-morbid condition(s) of [chronic kidney disease and kidney carcinoma] & not a complication of the procedure [ ] Other please specify ____ [ ] Unable to determine It is no.2 (Template Last Revised: November 2020) MTDD
[2021-01-10 12:15] VITALS: BP 125/75; PULSE 84; TEMP 98
--- NOTE | 2021-01-10 12:49 | P.DS ---
Providers Date of admission: 01/06/21 09:00 Attending physician: Pascual Lee MD Consults: 01/06/21 13:35 Consult Physician Routine Consulting Provider: Ag Martinez Consult Reason/Comments: HX of CKD S/p Radical nephrectomy Do you want consulting provider notified?: Yes Primary care physician: Elizabeth Hospital Course: 70-year-old female with history of right-sided transitional cell carcinoma. She underwent a right-sided nephroureterectomy on January 06. Please see op note dated January 06 for full surgery detail. [facility] was [facility] postoperatively. Her catheter was removed on postoperative day #1. Nephrology was consulted given her history of CKD. She was discharged home on postop day #4 to subacute rehab. At time of discharge she was tolerating a diet, ambulating, pain was well-controlled. Her abdominal exam was benign Plan - Discharge Summary Discharge Rx Participant: Yes New Discharge Prescriptions: New traMADol HCl [Ultram] 50 mg PO Q6HR PRN 3 Days #10 tab PRN Reason: Pain No Action Pravastatin Sodium [Pravachol] 40 mg PO HS Montelukast [Singulair] 10 mg PO HS Famotidine [Pepcid] 20 mg PO BID Insulin Glargine [Lantus] 20 unit SQ HS Budesonide [Pulmicort] 0.5 mg INHALATION BID Ondansetron [Zofran] 4 mg PO Q8HR PRN PRN Reason: Nausea Calcium Carbonate/Vitamin D3 [Calcium 600 mg-D3 10 Mcg (400 Iu)] 1 each PO DAILY metFORMIN HCL [Glucophage] 500 mg PO DAILY Furosemide [Lasix] 20 mg PO BID Metoprolol Tartrate [Lopressor] 25 mg PO BID Magnesium Oxide 400 mg PO DAILY Insulin Aspart [NovoLOG Flexpen] See Protocol SQ AC-TID Ergocalciferol [Vitamin D2 (1250 Mcg = 38687 Iu)] 1,250 mcg PO Q14D Albuterol Nebulized [Ventolin Nebulized] 2.5 mg INHALATION BID Discharge Medication List Albuterol Nebulized [Ventolin Nebulized] 2.5 mg INHALATION BID 12/31/20 [History] Budesonide [Pulmicort] 0.5 mg INHALATION BID 12/31/20 [History] Calcium Carbonate/Vitamin D3 [Calcium 600 mg-D3 10 Mcg (400 Iu)] 1 each PO DAILY 12/31/20 [History] Ergocalciferol [Vitamin D2 (1250 Mcg = 25614 Iu)] 1,250 mcg PO Q14D 12/31/20 [History] Famotidine [Pepcid] 20 mg PO BID 12/31/20 [History] Furosemide [Lasix] 20 mg PO BID 12/31/20 [History] Insulin Aspart [NovoLOG Flexpen] See Protocol SQ AC-TID 12/31/20 [History] Insulin Glargine [Lantus] 20 unit SQ HS 12/31/20 [History] Magnesium Oxide 400 mg PO DAILY 12/31/20 [History] Metoprolol Tartrate [Lopressor] 25 mg PO BID 12/31/20 [History] Montelukast [Singulair] 10 mg PO HS 12/31/20 [History] Ondansetron [Zofran] 4 mg PO Q8HR PRN 12/31/20 [History] Pravastatin Sodium [Pravachol] 40 mg PO HS 12/31/20 [History] metFORMIN HCL [Glucophage] 500 mg PO DAILY 12/31/20 [History] traMADol HCl [Ultram] 50 mg PO Q6HR PRN 3 Days #10 tab 01/07/21 [Rx] Activity/Diet/Wound Care/Special Instructions: No heavy lifting or straining for 4 weeks You can use Tylenol for pain, if still having pain can use the Ultram in addition You may shower but no baths Discharge Disposition: HOME SELF-CARE
[2021-01-10 13:13] LABS: African American GFR (CKD) 31 (>60 ml/min/1.73 sqM); Anion Gap 7 mmol/L; Blood Urea Nitrogen 30 mg/dL (7-17); Calcium 8.7 mg/dL (8.4-10.2); Carbon Dioxide 27 mmol/L (22-30); Chloride 105 mmol/L (98-107); Glucose 101 mg/dL (74-99); Non-African American GFR(CKD) 27 (>60 ml/min/1.73 sqM); Sodium 139 mmol/L (137-145)
--- NOTE | 2021-01-10 18:06 | PN ---
PROGRESS NOTE Patient is seen for followup for acute kidney injury, post right nephrectomy for renal cell cancer. She is currently doing well. There are plans for possible discharge today. Patient has been voiding. Abdominal pain has improved. PHYSICAL EXAMINATION: Blood pressure is 125/75, heart rate 84 per minute. She is afebrile. EXAMINATION OF THE HEART: S1 and S2. EXAMINATION OF LUNGS: Bilateral breath sounds are heard. ABDOMEN: Soft, non-tender. Examination of lower extremities shows no evidence of edema. SUPERINTENDENT GENERATING PLANT exam is grossly intact. LABS: Sodium 139, potassium 5.0, BUN 30, serum creatinine 1.87. ASSESSMENT: 1. Acute kidney injury, status post right ureteronephrectomy with increase in creatinine post surgery. Currently maintained on IV hydration. Serum creatinine is stable, staying at 1.8 from yesterday. Patient has good urine output. She can be discharged with plans to follow up as outpatient in about one week's time with repeat labs to be done in 3 to 4 days post discharge. 2. Renal cell cancer, status post robotic-assisted right nephroureterectomy. 3. Chronic kidney disease, stage 3, prior to surgery with previous creatinine 1.1 to 1.3, mostly associated with diabetic kidney disease. PLAN: Continue to maintain adequate hydration. Avoid nephrotoxic agents. Repeat labs 3 to 4 days post discharge. Follow up in the office in about one week's time. Patient is stable for discharge. Avoid use of NSAIDs post discharge. MMODL / IJN: [id number] /
== END 2021-01-10 15:00 | disposition home or self-care (01) | DRG 657 ==
LOC: 2ORMAIN 09:00 → EDSTATUS 10:55 → 5NMEDONC 15:14
PROVIDERS: ADMIT Urology; ATTEND Urology
PROC: 0TT60ZZ Resection of Right Ureter, Open Approach (ICD-10-PCS; 2021-01-06)
PROC: 8E0W4CZ Robotic Assisted Procedure of Trunk Region, Percutaneous Endoscopic Approach (ICD-10-PCS; 2021-01-06)
PROC: 0TT00ZZ Resection of Right Kidney, Open Approach (ICD-10-PCS; principal; 2021-01-06 10:55)
DX: C64.1 Malignant neoplasm of right kidney, except renal pelvis (principal); N17.9 Acute kidney failure, unspecified; D63.1 Anemia in chronic kidney disease; E11.22 Type 2 diabetes mellitus with diabetic chronic kidney disease; E78.5 Hyperlipidemia, unspecified; N18.31 Chronic kidney disease, stage 3a; Z79.4 Long term (current) use of insulin; Z79.899 Other long term (current) drug therapy; Z87.01 Personal history of pneumonia (recurrent); Z20.822 Contact with and (suspected) exposure to COVID-19; Z87.891 Personal history of nicotine dependence; Z92.21 Personal history of antineoplastic chemotherapy; I12.9 Hypertensive chronic kidney disease with stage 1 through stage 4 chronic kidney disease, or unspecified chronic kidney disease
CPT/HCPCS: 64999; 76942; 80048; 82728; 83540; 83550; 85025; 86850; 86900; 86901; 87635; 88307; 94640; 94760

== ENCOUNTER → 2021-04-08 | Outpatient (CLI) | payer MEDICARE, OTHER ==
--- NOTE | 2021-04-09 16:02 | CT ---
EXAMINATION TYPE: CT abdomen pelvis wo con DATE OF EXAM: 04/08/2021 COMPARISON: CT scan 11/19/2020 HISTORY: f/u uterine ca CT DLP: 679 mGycm Automated exposure control for dose reduction was used. TECHNIQUE: Helical acquisition of images was performed from the lung bases through the pelvis. FINDINGS: LUNG BASES: No significant abnormality is appreciated. LIVER/GB: No significant abnormality is appreciated. PANCREAS: No significant abnormality is seen. SPLEEN: No significant abnormality is seen. ADRENALS: No significant abnormality is seen. KIDNEYS: There appears to been previous right nephrectomy since the prior exam of 11/19/2020. However, there now appears to be in the solid and cystic component mass in the right retroperitoneum and simeon l bed measuring approximately 4 x 3.5 x 4 cm suspicious for recurrent neoplasm. Posterior lateral to this there is a cystic component measuring 3.4 cm and 5 Hounsfield units. Additionally within the right peritoneum on the left there are small lymph nodes with the largest mihir suring 1.4 cm in short axis compatible with additional retroperitoneal adenopathy. Posterior the righ t margin of the colon there also is a soft tissue nodule likely representing either a neoplastic impl ant or small lymph node measuring 7 mm in short axis. OSSEOUS STRUCTURES: Hypertrophic and degenerative changes of the spine. BOWEL: Bowel gas pattern nonspecific with no obstruction. OTHER: Atherosclerotic change of aorta with no evidence of aneurysm. IMPRESSION: 1. There is interval development of right nephrectomy changes. However, there also is interval develo pment of a 4 x 3.5 x 4 cm soft tissue mass within the right retroperitoneum and renal bed suspicious for recurrent neoplasm. Cystic component posterolaterally to this soft tissue mass is noted as discussed above. Additional le ft-sided retroperitoneal adenopathy as well as a small lymph node or implant seen posterior to the ri ght colon in the right paracolic gutter. Recommend follow-up additional PET scan.
== END | disposition home or self-care (01) ==
LOC: RADCTMAIN 13:49
PROVIDERS: ATTEND Internal Medicine Hematology & Oncology
DX: R19.00 Intra-abdominal and pelvic swelling, mass and lump, unspecified site (principal); R59.0 Localized enlarged lymph nodes; Z85.42 Personal history of malignant neoplasm of other parts of uterus; Z90.5 Acquired absence of kidney
CPT/HCPCS: 74176

== ENCOUNTER → 2021-04-15 | Outpatient (CLI) | payer MEDICARE, OTHER ==
--- NOTE | 2021-04-15 14:17 | PE ---
EXAMINATION TYPE: PET CT fusion skull to thigh DATE OF EXAM: 04/15/2021 COMPARISON: CT abdomen pelvis 04/08/2021 Prior PET/CT: 11/19/2020 HISTORY: Ureter cancer TECHNIQUE: Following the intravenous administration of 13.3 mCi of F-18 FDG, whole body images are p erformed from the skull base to the midthigh. Images are reviewed on the computer in the coronal, ax ial, and sagittal planes. Reconstructed rotating images are created on independent workstation and r eviewed on the computer. A localization and attenuation correction CT is performed in conjunction w ith the PET scan. DLP: 304.08 mGycm SCAN: Subsequent Blood glucose: 104 mg/dL Average Mediastinum SUV: 1.88 Average Liver SUV: 2.18 FINDINGS: NECK: No abnormal uptake THORAX: No abnormal uptake ABDOMEN: Liver: There is a focus of radiotracer accumulation within the posterior right medial liver, image 116 with an SUV value of 2.99 suspicious for metastatic lesion. A small areas in the dome of t he right liver, image 114 with an SUV value of 2.68. In the anterior right medial lobe liver area of increased radiotracer measures 2.93, image 116. A punctate peripheral right lobe liver finding is on image 120 SUV value 1.86. There is intense activity within the anterior right tip of the liver with a n SUV value of 3.24, image 148. These findings are suspicious for hepatic metastasis. There is intense activity in a large retrocaval mass with SUV of 13.16 compatible with metastasis. In the periaortic region at the same level, example image 147, there is increased uptake of radiotracer measuring 8.87 as the suspicious for metastasis. Some additional retrocaval uptake is on image 153, 6 SUV of 11.59. Left periaortic uptake is also noted at this level. There is a smaller focus of incre ased radiotracer accumulation within the retrocaval region, image 161 with an SUV value of 3.09. An a dditional focus is on image 168 with an SUV value of 4.14. These findings are suspicious for retrocav al and periaortic metastatic adenopathy. There is a punctate area of radiotracer accumulation within the right paracolic region lateral to the psoas muscle, image 163. This has an SUV value of 2.05. Small metastatic lymph node or soft tissue m etastasis should be considered PELVIS: No suspicious uptake OSSEOUS STRUCTURES: No definite suspicious uptake within the osseous structures. The periaortic and r etrocaval uptake has some blooming artifact although the central portion appears to be external to th e osseous structures suggesting osseous metastasis less likely. LOCALIZATION CT: Localization CT appears to under estimate the findings within the liver. These suspe cted adenopathy is evident on localization CT the para-aortic and retrocaval region. A small lymph no de or soft tissue nodule in the right paracolic region is apparent. Series 3 image 164 COMPARISON: The adenopathy with uptake, the hepatic uptake, and the uptake within the soft tissue ret roperitoneal nodule are all new from comparison. IMPRESSION: 1. Enlarged periaortic and retrocaval adenopathy with abnormal uptake suspicious for metastatic disea se. 2. Punctate nodule within the retroperitoneal soft tissues on the right has uptake may be a soft tiss ue metastatic lesion or lymph node. This is new uptake from the comparison study. 3. Scattered small foci of hepatic uptake suspicious for metastatic disease.
== END | disposition home or self-care (01) ==
LOC: RADPETMAIN 08:26
PROVIDERS: ATTEND Internal Medicine Hematology & Oncology
DX: C66.9 Malignant neoplasm of unspecified ureter (principal)
CPT/HCPCS: 78815; A9552